=== PATIENT | female | born 1950 | race Caucasian/White ===

== ENCOUNTER → 2016-10-09 | Outpatient (CLI) | payer MEDICARE, OTHER ==
[~2016-10-09] MED LIST: ASPIRIN 81M81 MG/TA2 PO; CALCIUM PO; COSAMIN DS PO; GLUCOPHAGE1000 MG PO; GLUCOSAMINE500 M2 PO; JANUVIA 100MG100 MG PO; NATURE'S BLE1000 MCG PO; VIT PO
== END ==
LOC: MC.RAD 07:20
DX: Z12.31 Encounter for screening mammogram for malignant neoplasm of breast (principal); Z80.3 Family history of malignant neoplasm of breast

== ENCOUNTER → 2018-01-13 | Outpatient (CLI) | payer MEDICARE, OTHER | LOC: MC.RAD 07:46 | DX: Z12.31 Encounter for screening mammogram for malignant neoplasm of breast (principal) ==

== ENCOUNTER → 2019-09-05 | Outpatient (CLI) | payer MEDICARE, OTHER | LOC: MC.RAD 14:03 | DX: Z12.31 Encounter for screening mammogram for malignant neoplasm of breast (principal) ==

== ENCOUNTER → 2021-05-24 | Emergency (ER) | payer MEDICARE, OTHER ==
[~2021-05-24] VITALS: Ht 162.6 cm; Wt 70.5 kg
[~2021-05-24] MED LIST changes: +NORCO 325 MG-51 TAB PO
[2021-05-24 18:24] VITALS: BP 128/86; PULSE 82; TEMP 98.1
== END ==
LOC: COL.ER 17:23
DX: S09.90XA Unspecified injury of head, initial encounter (principal); S52.571A Other intraarticular fracture of lower end of right radius, initial encounter for closed fracture; S52.611A Displaced fracture of right ulna styloid process, initial encounter for closed fracture; S80.01XA Contusion of right knee, initial encounter; S05.11XA Contusion of eyeball and orbital tissues, right eye, initial encounter; E11.9 Type 2 diabetes mellitus without complications; Z79.84 Long term (current) use of oral hypoglycemic drugs; W10.9XXA Fall (on) (from) unspecified stairs and steps, initial encounter